=== PATIENT | female | born 1975 | race Two or more races ===

== ENCOUNTER 2019-12-30 17:12 | Emergency (ER) | payer MEDICAID ==
[~2019-12-30] VITALS: Ht 156.2 cm; Wt 80.3 kg
[~2019-12-30 17:12] MED LIST: ACET-503 PO
[2019-12-30 17:18] VITALS: BP 135/79
[2019-12-30] MEDS ORDERED: LORazepam 2 MG/ML VIAL IM ONE (17:30)
[2019-12-30 19:41] VITALS: BP 135/79
== END 2019-12-30 19:43 | disposition home or self-care (01) ==
LOC: MED 17:12
DX: F41.9 Anxiety disorder, unspecified (principal); R07.9 Chest pain, unspecified; R03.0 Elevated blood-pressure reading, without diagnosis of hypertension; Z79.899 Other long term (current) drug therapy
CPT/HCPCS: 36415; 71045; 84484; 93005; 96372; 99285; J2060; Q0092

== ENCOUNTER 2021-05-31 14:10 | Emergency (ER) | payer MEDICAID ==
[~2021-05-31] VITALS: Ht 154.9 cm; Wt 84.0 kg
[2021-05-31 14:21] VITALS: BP 152/87
--- NOTE | 2021-05-31 14:35 | NUR ---
46 Y/O F AMBULATED TO BED 5, C/O LEFT NECK/HEAD PAIN, DIZZINESS X 1 WEEK. PT PROVIDE URINE CUP AND SHE AMBULATED TO THE [facility]
[2021-05-31 15:39] LABS: BASOPHILS # (AUTO) 0.1 K/uL (0.00-0.22); BASOPHILS % (AUTO) 0.9 % (0.0-2.0); EOSINOPHILS # (AUTO) 0.2 K/uL (0-0.4); EOSINOPHILS % (AUTO) 3.2 % (0.0-4.0); HEMATOCRIT 33.5 % (36-48); HEMOGLOBIN 10.4 g/dL (12.0-16.0); LYMPHOCYTES # (AUTO) 2.4 K/uL (2.5-16.5); LYMPHOCYTES % (AUTO) 31.4 % (20.5-51.1); MEAN CORPUSCULAR HEMOGLOBIN 22 pg (27-31); MEAN CORPUSCULAR HGB CONC 31 g/dL (33-37); MEAN CORPUSCULAR VOLUME 70.8 fL (80-94); MONOCYTES # (AUTO) 0.6 K/uL (0.8-1.0); MONOCYTES % (AUTO) 8.4 % (1.7-9.3); NEUTROPHILS # (AUTO) 4.2 K/uL (1.8-7.7); NEUTROPHILS % (AUTO) 56.1 % (42.2-75.2); PLATELET COUNT (AUTO) 327 K/uL (140-450); RED BLOOD CELL COUNT(AUTO) 4.73 MIL/uL (4.20-5.40); RED CELL DISTRIBUTION WIDTH 19.5 % (11.6-13.7); WHITE BLOOD COUNT (AUTO) 7.5 K/uL (4.8-10.8)
[2021-05-31 16:11] LABS: ALBUMIN 3.9 g/dL (3.4-5.0); CARBON DIOXIDE 24.7 mmol/L (21-32); CREATININE 0.5 mg/dL (0.6-1.3); POTASSIUM 3.7 mmol/L (3.5-5.1); THYROID STIMULATING HORMONE 2.23 uIU/mL (0.34-3.74); TOTAL BILIRUBIN 0.2 mg/dL (0.0-1.0)
--- NOTE | 2021-05-31 16:34 | NUR ---
PT TAKEN TO CT VIA WC, BY LAB INTERN
--- NOTE | 2021-05-31 16:50 | NUR ---
PT BACK FROM CT, PT TOLERATED WELL, PT PLACED BACK ON MONITOR
[2021-05-31 17:45] VITALS: BP 113/59
--- NOTE | 2021-05-31 17:45 | NUR ---
Patient discharged with v/s stable. Written and verbal after care instructions given and explained. Patient verbalized understanding. Ambulatory with steady gait. All questions addressed prior to discharge. Advised to follow up with PMD.
== END 2021-05-31 17:45 | disposition home or self-care (01) ==
LOC: MED 14:10
DX: E04.1 Nontoxic single thyroid nodule (principal); M54.2 Cervicalgia; Z79.899 Other long term (current) drug therapy; Z98.890 Other specified postprocedural states
CPT/HCPCS: 36415; 70498; 80053; 81002; 81025; 83735; 84443; 84484; 85025; 93005; 99285; Q9967

== ENCOUNTER 2021-06-06 23:40 | Emergency (ER) | payer MEDICAID ==
[~2021-06-06] VITALS: Ht 152.4 cm; Wt 83.5 kg
[2021-06-06 23:47] VITALS: BP 136/81
[2021-06-07] MEDS ORDERED: FAMO-90 PO (01:15)
[2021-06-07] MEDS ORDERED: DIPH25TA53 PO (01:15)
[2021-06-07] MEDS ORDERED: EPIN1KIT31 IM (01:15)
[2021-06-07] MEDS ORDERED: PRED20TA5 PO (01:15)
[2021-06-07] MEDS ORDERED: predniSONE 20 MG TAB PO ONE (01:15)
[2021-06-07] MEDS ORDERED: FAMOTIDINE 20 MG TAB PO ONE (01:15)
[2021-06-07] MEDS ORDERED: EPINEPHrine 1 MG/ML AMP IM ONE (01:35)
[2021-06-07] MEDS ORDERED: FAMOTIDINE 20 MG/2 ML VIAL IVP ONE (01:35)
[2021-06-07] MEDS ORDERED: methylPREDNISolone SS 125 MG/2 ML VIAL IVP ONE (01:35)
[2021-06-07] MEDS ORDERED: diphenhydrAMINE 50 MG/ML VIAL IVP ONE (01:35)
--- NOTE | 2021-06-07 03:05 | NUR ---
46 Y/O FEMALE BIB SELF, C/O HIVES AND ITCHY. PATIENT PRESENTS TO ED WITH ALL OVER BODY RED, ITCHY, HIVES. DENIES N/V/D; SKIN IS PINK/WARM/DRY; AAOX4 WITH EVEN AND STEADY GAIT; LUNGS CLEAR BL, UNLABORED BREATHING; HR EVEN AND REGULAR; PT DENIES ANY FEVER, CP, SOB, OR COUGH AT THIS TIME; PATIENT STATES PAIN OF 0/10 AT THIS TIME; VSS; PATIENT POSITIONED FOR COMFORT; HOB ELEVATED; BEDRAILS UP X2; BED DOWN. ER MD MADE AWARE OF PT STATUS. HX: NKDA
--- NOTE | 2021-06-07 03:55 | NUR ---
MD AT BEDSIDE DISCUSSING RESULTS WITH PT
[2021-06-07 04:00] VITALS: BP 112/54
--- NOTE | 2021-06-07 04:00 | NUR ---
Patient discharged with v/s stable. Written and verbal after care instructions given and explained. Patient alert, oriented and verbalized understanding of instructions. Ambulatory with steady gait. All questions addressed prior to discharge. ID band removed. Patient advised to follow up with PMD. Rx of Benadryl, Epipen, Pepcid, and Deltasone given. Patient educated on indication of medication including possible reaction and side effects. Opportunity to ask questions provided and answered. VSS, A/OX4, ambulaytory, unlabored breathing, and calm demeanor.
== END 2021-06-07 04:00 | disposition home or self-care (01) ==
LOC: MED 23:40
DX: T78.40XA Allergy, unspecified, initial encounter (principal); Z79.899 Other long term (current) drug therapy; X58.XXXA Exposure to other specified factors, initial encounter
CPT/HCPCS: 81025; 96372; 96374; 96375; 99284; J0171; J1200; J2930; J3490

== ENCOUNTER 2023-01-08 19:25 | Emergency (ER) | payer MEDICAID ==
[~2023-01-08] VITALS: Ht 152.4 cm; Wt 81.6 kg
[~2023-01-08 19:25] MED LIST changes: +DIPH25TA53 PO; +EPIN1KIT31 IM; +FAMO-90 PO; +PRED20TA5 PO
[2023-01-08 19:54] VITALS: BP 117/76; PULSE 60; RESP 16; TEMP 97.4; O2SAT 100
[2023-01-08 23:03] LABS: BASOPHILS # (AUTO) 0.1 K/uL (0.00-0.22); BASOPHILS % (AUTO) 0.6 % (0.0-2.0); EOSINOPHILS # (AUTO) 0.3 K/uL (0-0.4); EOSINOPHILS % (AUTO) 2.4 % (0.0-4.0); HEMATOCRIT 32.1 % (36-48); HEMOGLOBIN 10.2 g/dL (12.0-16.0); LYMPHOCYTES # (AUTO) 3.1 K/uL (2.5-16.5); LYMPHOCYTES % (AUTO) 25.2 % (20.5-51.1); MEAN CORPUSCULAR HEMOGLOBIN 23 pg (27-31); MEAN CORPUSCULAR HGB CONC 32 g/dL (33-37); MEAN CORPUSCULAR VOLUME 71.7 fL (80-94); MONOCYTES # (AUTO) 0.9 K/uL (0.8-1.0); MONOCYTES % (AUTO) 7.6 % (1.7-9.3); NEUTROPHILS # (AUTO) 7.9 K/uL (1.8-7.7); NEUTROPHILS % (AUTO) 64.2 % (42.2-75.2); PLATELET COUNT (AUTO) 304 K/uL (140-450); RED BLOOD CELL COUNT(AUTO) 4.48 MIL/uL (4.20-5.40); RED CELL DISTRIBUTION WIDTH 17.9 % (11.6-13.7); WHITE BLOOD COUNT (AUTO) 12.4 K/uL (4.8-10.8)
[2023-01-08 23:22] LABS: FLU A ANTIGEN negative (NEGATIVE); FLU B ANTIGEN NEGATIVE (NEGATIVE)
[2023-01-08 23:24] LABS: ALANINE AMINOTRANSFERASE 24 U/L (12-78); ALBUMIN 3.9 g/dL (3.4-5.0); ALKALINE PHOSPHATASE 87 U/L (50-136); ANION GAP 12.2 (8-16); ASPARTATE AMINOTRANSFERASE 17 U/L (15-37); CALCIUM 8.9 mg/dL (8.5-10.1); CARBON DIOXIDE 24.8 mmol/L (21-32); CHLORIDE 104 mmol/L (98-107); CREATININE 0.6 mg/dL (0.6-1.3); GFR ARICAN-AMERICAN 138 mL/min (>90); GFR NON ARICAN-AMERICAN 114 mL/min (>90); GLUCOSE 85 mg/dL (74-106); SODIUM SERUM 137 mmol/L (136-145); TOTAL BILIRUBIN 0.2 mg/dL (0.0-1.0); TOTAL PROTEIN, SERUM 8.2 g/dL (6.4-8.2); UREA NITROGEN, BLOOD 8 mg/dL (7-18)
[2023-01-08] MEDS: ONDANSETRON 4 MG ODT PO ONE (23:27)
[2023-01-08 23:31] LABS: APPEARANCE,URINE CLEAR (CLEAR); BILIRUBIN,URINE NEGATIVE (NEGATIVE); BLOOD, URINE NEGATIVE (NEGATIVE); COLOR,URINE YELLOW (YELLOW); LEUKOCYTE ESTERASE ,URINE NEGATIVE (NEGATIVE); NITRITE, URINE NEGATIVE (NEGATIVE); PROTEIN,URINE NEGATIVE (NEGATIVE); UGLUCOSE NEGATIVE (NEGATIVE); UROBILINOGEN,URINE 0.2 EU/dL (0.2 - 1)
[2023-01-08] MEDS: ACETAMINOPHEN EXTRA STRENGTH 500 MG TAB PO ONE (23:35)
[2023-01-08] MEDS: KETOROLAC 30 MG/ML VIAL IM ONE (23:40)
[2023-01-09 00:16] VITALS: BP 117/76; PULSE 60; RESP 16; TEMP 97.4; O2SAT 100
== END 2023-01-09 00:16 | disposition home or self-care (01) ==
LOC: MED 19:25
DX: R07.9 Chest pain, unspecified (principal); R06.02 Shortness of breath; R11.0 Nausea; F41.9 Anxiety disorder, unspecified; F32.9 Major depressive disorder, single episode, unspecified; Z79.899 Other long term (current) drug therapy; Z20.822 Contact with and (suspected) exposure to COVID-19
CPT/HCPCS: 36415; 71045; 80053; 81003; 84484; 85025; 87426; 87804; 93005; 96372; 99285; J1885; Q0162